=== PATIENT | female | born 1995 | race Caucasian/White ===

== ENCOUNTER 2018-02-23 17:38 | Emergency (ER) | payer OTHER ==
[2018-02-23 17:45] VITALS: BP 139/97
--- NOTE | 2018-02-23 18:23 | ED Physician Documentation ---
History of Present Illness - Stated complaint Stated Complaint: FEMALE - Chief complaint Chief Complaint: General - History obtained from History obtained from: Patient, Family - History of Present Illness Timing: Today Pain level max: 0 Pain level now: 0 Improved by: nothing Worsened by: nothing - Additonal information Additional information: Patient states she was is inserting a tampon when she noticed her IUD strings were longer than usual. Not having any pain or cramping. Review of Systems Constitutional: denies: Fever : denies: Now [facility] PAST MEDICAL HISTORY - Past Medical History Past Medical History: No - Past Surgical History Past Surgical History: Yes /[employer]: section - Present Medications Home Medications: Ambulatory Orders Medication Instructions Recorded Confirmed No Known Home Medications 02/23/18 02/23/18 - Allergies Allergies/Adverse Reactions: Allergies Allergy/AdvReac Type Severity Reaction Status Date / Time No Known Drug Allergies Allergy Verified 02/23/18 17:45 - Social History Does the pt smoke?: No Smoking Status: Never smoker Does the pt drink ETOH?: Yes Does the pt have substance abuse?: No - Immunizations Immunizations are current?: Yes PD ED PE NORMAL - Vitals Vital signs reviewed: Yes - General General: Alert and oriented X 3, No acute distress - Cardiac Cardiac: RRR - Respiratory Respiratory: No respiratory distress, Clear bilaterally - Abdomen Abdomen: Soft, Non tender, Non distended - Derm Derm: Warm and dry - Neuro Neuro: Alert and oriented X 3 - Psych Psych: Normal mood, Normal affect Results - Vitals Vitals: Vital Signs - 24 hr 02/23/18 17:44 Temperature 36.8 C Heart Rate 88 Respiratory 18 Rate Blood Pressure 139/97 H O2 Saturation 98 Oxygen O2 Source Room air PD MEDICAL DECISION MAKING - ED course Complexity details: considered differential, d/w patient ED course: Bedside ultrasound performed and reveals her intrauterine device in the center of her uterus. She declines a pelvic exam at this time and I think this is reasonable given her ultrasound. We will have her follow-up with her doctor for further care. Patient counseled regarding signs and symptoms for which I believe and urgent re-evaluation would be necessary. Patient with good understanding of and agreement to plan and is comfortable going home at this time This document was made in part using voice recognition software. While efforts are made to proofread this document, sound alike and grammatical errors may occur. Ultrasound images were shown to the patient Departure - Departure Disposition: 01 Home, Self Care Clinical Impression: Checking of intrauterine device Condition: Good Instructions: Control IUD Follow-Up: your,doctor as needed [Other] Comments: Your IUD appears in the middle of your uterus on ultrasound today. Follow-up with your doctor for further care. Return if you develop worsening symptoms such as severe pain in your lower abdomen. Discharge Date/Time: 02/23/18 18:27
== END 2018-02-23 18:27 | disposition home or self-care (01) ==
LOC: ED 17:38
DX: Z30.431 Encounter for routine checking of intrauterine contraceptive device (principal)
CPT/HCPCS: 99281; 99282